=== PATIENT | male | born 2000 | race Caucasian/White ===

== ENCOUNTER 2021-11-11 10:39 | Emergency (ER) | payer BC, SELFPAY ==
[2021-11-11 10:42] VITALS: BP 132/76; PULSE 105; RESP 14; TEMP 36.8; O2SAT 94
--- NOTE | 2021-11-11 11:02 | W.ED.GENAD ---
Discharge Plan Disposition Patient Disposition: HOME Condition: Good Discharge Details Clinical Impression: Pharyngitis Primary Care Provider: Unknown,Unknown ED Provider: Jana Brunson Home Meds and New Rx's Prescriptions: No Action No Known Home Meds RF: 0 Discharge Instructions Instructions: Pharyngitis (ED) Additional Instructions: Ibuprofen 600 mg every 8 hours with food Tylenol 650 mg every 4-6 hours as needed for pain control Should your symptoms persist greater than 3 days, recommend outpatient mono testing Covid test recommended prior to contact with others, isolation until your Covid test returned Please return with any new or worsening complaints Discharge Data Discharge Date/Time-TO BE ENTERED AT DEPARTURE: 11/11/21 11:37 Medical Decision Making Negative strep rapid, will send for culture I offered to send out Covid, patient states that he will perform rapid Covid test when he returns home, declined PCR Covid testing here Appears well, uvula midline, oropharynx pink, will test for mono in the outpatient setting of symptoms greater than 3 days Contact precautions discussed Discharged home in stable condition with stable vitals, will isolate pending Covid test result HPI General Mode of arrival: ambulatory. Date/Time Provider Initiated Documentation: 11/11/21 10:48. Limitations to Documentation: no limitations. Information obtained by: patient. HPI Narrative: This 20-year-old male presents with sore throat for the past 24 hours. 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 Denies any stiff neck or fever. Denies any abdominal pain, nausea, vomiting. Denies runny nose or cough. Related Data Home Medications Medication Instructions Recorded Confirmed Unknown [No Known Home Meds] 11/11/21 11/11/21 Allergies Allergy/AdvReac Type Severity Reaction Status Date / Time Penicillins AdvReac Intermediate really Unverified 11/11/21 10:55 bad rash General Stated Complaint: Sorethroat NIK: 4 Review of Systems All systems reviewed & are unremarkable except as noted in HPI and below PFSH All Active Problems (Updated 11/11/21 @ 11:05 by OLI Pfeiffer) Pharyngitis (Acute) Social History Smoking/Tobacco Use Status: Never Smoking risk assessment performed?: Yes Alcohol Intake: never Substance use type: does not use Do you feel safe at home: Yes Do you feel safe in your relationship?: Yes Exam Const General: cooperative, comfortable and no acute distress HENMT Other: Uvula midline, no tonsillar exudate, no abscess, maintaining secretions Neck Other: No stridor, no obvious submandibular or occipital lymphadenopathy Course Vital Signs Vital signs: Vital Signs Temperature 36.8 C 11/11/21 10:42 Pulse 105 H 11/11/21 10:42 Respiratory Rate 14 11/11/21 10:42 Blood Pressure 132/76 11/11/21 10:42 Pulse Oximetry 94 11/11/21 10:42 Temperature 36.8 C 11/11/21 10:42 Temperature Source Skin 11/11/21 10:42 Pulse 105 H 11/11/21 10:42 Respiratory Rate 14 11/11/21 10:42 Respiratory Effort 11/11/21 10:55 Blood Pressure 132/76 11/11/21 10:42 Blood Pressure Position Sitting 11/11/21 10:42 Pulse Oximetry 94 11/11/21 10:42 Oxygen Delivery Method Room Air 11/11/21 10:42 Oxygen Flow Rate 0 11/11/21 10:42 Pain Level 4 11/11/21 10:42 Comment 11/11/21 10:42 Lab/Test Results Lab/Test Results: 11/11/21 10:59 Pharynx Group A Streptococcus Culture - Pending
--- NOTE | 2021-11-11 16:09 | NUR.NOTE ---
Addendum entered by Christiane Plascencia 11/11/21 16:10: provider notified Original Note: pt called to say he tested positive for COVID with the school rapid test Nursing Note:
== END 2021-11-11 11:37 | disposition home or self-care (01) ==
PROVIDERS: Emergency Provider Physician Assistant
DX: J02.9 Acute pharyngitis, unspecified (principal)
CPT/HCPCS: 87880; 99282; 87081